=== PATIENT | female | born 1990 | race Caucasian/White ===

== ENCOUNTER → 2018-07-10 | Outpatient (CLI) | payer OTHER | END | disposition home or self-care (01) | LOC: RAD 14:28 | PROVIDERS: ATTEND Physician Assistant Surgical | DX: M65.872 Other synovitis and tenosynovitis, left ankle and foot (principal); M79.89 Other specified soft tissue disorders; W18.30XA Fall on same level, unspecified, initial encounter; Y93.89 Activity, other specified; Y92.89 Other specified places as the place of occurrence of the external cause; Y99.8 Other external cause status ==